=== PATIENT | male | born 1945 | race Caucasian/White ===

== ENCOUNTER → 2016-08-12 | Outpatient (CLI) | payer MEDICARE, BC | END | disposition home or self-care (01) | LOC: GMAL 14:30 | PROVIDERS: ATTEND Family Medicine | DX: D51.3 Other dietary vitamin B12 deficiency anemia (principal); E55.9 Vitamin D deficiency, unspecified ==

== ENCOUNTER → 2016-10-30 | Outpatient (CLI) | payer MEDICARE, BC ==
--- NOTE | 2016-10-30 19:16 | RAD ---
EXAM DESCRIPTION: Chest,2 Views CLINICAL HISTORY: 71 years Male FEVER, UNSPECIFIED COMPARISON: None. FINDINGS: Cardiac size and mediastinal contour are within normal limits. Elevation the left hemidiaphragm. Degenerative changes in the spine. Small amount of patchy density in the lung bases which may reflect atelectasis. Small degree of infiltrate is not excluded. IMPRESSION: Bilateral basilar atelectasis. Areas of developing infiltrate not entirely excluded Electronically signed by: Carito Parra 10/30/2016 7:15 PM CDT
== END | disposition home or self-care (01) ==
LOC: RAD 18:31
PROVIDERS: ATTEND Nurse Practitioner Family
DX: R50.9 Fever, unspecified (principal)

== ENCOUNTER → 2017-04-01 | Outpatient (CLI) | payer MEDICARE, BC | END | disposition home or self-care (01) | LOC: GMAL 11:56 | PROVIDERS: ATTEND Family Medicine | DX: Z12.5 Encounter for screening for malignant neoplasm of prostate (principal); E55.9 Vitamin D deficiency, unspecified | CPT/HCPCS: 82306; G0103 ==

== ENCOUNTER 2017-04-07 05:48 | Day surgery (SDC) | payer MEDICARE, BC ==
[2017-04-07] MEDS ORDERED: PROPARACAINE 0.5% OPHTH SOL 15 ML BTTL ONE (10:10)
[2017-04-07] MEDS ORDERED: TROP 1%/CYCLOPEN 1%/PHENYL 2% DROPS ONE (10:11)
[2017-04-07] MEDS ORDERED: MIDAZOLAM INJ 2 MG/2 ML VIAL ONE (12:31)
[2017-04-07] MEDS ORDERED: LIDOCAINE 1% PF 2 ML AMP INJ ONE (13:24)
[2017-04-07] MEDS ORDERED: DEXAMETHASONE 0.1% OPHTH SOL 1 DROP LEFT_EYE ONE ×2 (13:26→13:40)
[2017-04-07] MEDS ORDERED: BRIMONIDINE 0.2% OPHTH DROPS LEFT_EYE ONE ×2 (13:27→13:40)
[2017-04-07] MEDS ORDERED: TOBRAMYCIN SULF 0.3 % OPHT SOL 1 DROP LEFT_EYE ONE ×2 (13:27→13:40)
[2017-04-07 13:57] VITALS: BP 170/80; TEMP 97.3; O2SAT 95
== END 2017-04-07 14:15 | disposition home or self-care (01) ==
LOC: AMB 05:48
PROVIDERS: ATTEND Ophthalmology
DX: H25.12 Age-related nuclear cataract, left eye (principal); H52.202 Unspecified astigmatism, left eye; I10 Essential (primary) hypertension; K21.9 Gastro-esophageal reflux disease without esophagitis; Z88.8 Allergy status to other drugs, medicaments and biological substances; Z79.899 Other long term (current) drug therapy
CPT/HCPCS: 00142; 66984; J2250; V2786

== ENCOUNTER 2017-04-21 05:43 | Day surgery (SDC) | payer MEDICARE, BC ==
[2017-04-21] MEDS ORDERED: PROPARACAINE 0.5% OPHTH SOL 15 ML BTTL ONE (05:51)
[2017-04-21] MEDS ORDERED: TROP 1%/CYCLOPEN 1%/PHENYL 2% DROPS ONE (05:52)
[2017-04-21] MEDS: TOBRAMYCIN SULF 0.3 % OPHT SOL 1 DROP RIGHT_EYE ONE ×2 (11:54→12:50)
[2017-04-21] MEDS ORDERED: MIDAZOLAM INJ 2 MG/2 ML VIAL ONE ×2 (12:04→12:34)
[2017-04-21] MEDS ORDERED: PROPARACAINE 0.5% OPHTH SOL 15 ML BTTL RIGHT_EYE ONE (12:31)
[2017-04-21] MEDS ORDERED: LIDOCAINE 1% PF 2 ML AMP INJ ONE (12:44)
[2017-04-21] MEDS ORDERED: DEXAMETHASONE 0.1% OPHTH SOL 1 DROP RIGHT_EYE ONE ×2 (12:44→12:50)
[2017-04-21] MEDS ORDERED: TOBRAMYCIN SULF 0.3 % OPHT SOL 1 DROP RIGHT_EYE ONE (12:45)
[2017-04-21] MEDS ORDERED: BRIMONIDINE 0.2% OPHTH DROPS RIGHT_EYE ONE ×2 (12:45→12:50)
[2017-04-21 13:27] VITALS: TEMP 97
[2017-04-21 13:29] VITALS: BP 161/91; O2SAT 97
== END 2017-04-21 13:30 | disposition home or self-care (01) ==
LOC: AMB 05:43
PROVIDERS: ATTEND Ophthalmology
DX: H25.11 Age-related nuclear cataract, right eye (principal); H52.201 Unspecified astigmatism, right eye; H52.4 Presbyopia; J45.909 Unspecified asthma, uncomplicated; Z79.51 Long term (current) use of inhaled steroids; Z79.899 Other long term (current) drug therapy; Z88.6 Allergy status to analgesic agent
CPT/HCPCS: 00142; 66984; J2250

== ENCOUNTER → 2017-06-16 | Outpatient (CLI) | payer MEDICARE, BC | LOC: GMAL 14:23 | PROVIDERS: ATTEND Family Medicine | DX: D53.9 Nutritional anemia, unspecified (principal) ==

== ENCOUNTER → 2018-03-11 | Outpatient (CLI) | payer MEDICARE ==
--- NOTE | 2018-03-12 08:20 | US ---
EXAM DESCRIPTION: Bladder: ULTRASOUND. CLINICAL HISTORY: 72 years Male N39.41 COMPARISON: None Available. TECHNIQUE: Transcutaneous scanning: Hernández-scale and Doppler modes. FINDINGS: Urinary bladder well demonstrated. Prevoid measurements 10.2 x 7.3 x 6.0 cm for total volume of 234.71 mL. Postvoid dimensions 3.5 x 1.8 x 1.8 cm for volume of 5.7 mL. Micturition volume approximately 229 mL. Ureteral jets were not visualized. No wall thickening. No prominent soft tissue mass in the bladder cavity. IMPRESSION: Patient able to void approximately 95% of initial volume with residual volume 5.7 mL. Electronically signed by: Bruno Garza MD 03/12/2018 8:19 AM INTERNAL MEDICINE NURSE
== END ==
LOC: US 11:41
PROVIDERS: ATTEND Family Medicine
DX: N39.41 Urge incontinence (principal)

== ENCOUNTER → 2018-04-05 | Outpatient (CLI) | payer MEDICARE | LOC: SL 20:27 | PROVIDERS: ATTEND Family Medicine | DX: G47.33 Obstructive sleep apnea (adult) (pediatric) (principal) ==

== ENCOUNTER → 2018-05-26 | Outpatient (CLI) | payer MEDICARE ==
--- NOTE | 2018-05-26 12:07 | MRI ---
EXAM DESCRIPTION: Cervical Spine: MRI. CLINICAL HISTORY: 72 years Male SPINAL CORD CONTUSION COMPARISON: Cervical TECHNIQUE: Multiplanar, high-field MRI, multiple sequences, non-contrast Cervical spine. FINDINGS: C3-C4. Posterior midline bulge of the desiccated disc impressing on the cord. Posterior hypertrophied flavum ligaments impressing on the posterior cord. AP canal diameter 4 mm. Minimal hyperintense signal in the central cord extending also to the level of the mid C5 vertebral body. Bilateral facet arthrosis with extra-articular edema more left than right. Bilateral neural foraminal stenosis more right than left. This has progressed since the prior study. ACDF bilateral C4-C5. Minimal hypertrophy of the posterior interbody fusion abutting the cord. Hyperintense T2 and STIR signal in the central cord canal. Right neural foraminal stenosis and moderate left neural foraminal narrowing. No abnormal fluid collection around the hardware are within the canal. C5-C6: Disc desiccation with no significant bulging posteriorly. Hypertrophy of the left uncinate joint with left facet arthrosis and hypertrophy resulting in left neural foraminal stenosis. Mild right neural foraminal narrowing. Minimal facet joint arthrosis bilaterally. C6-C7: Moderate disc space loss and disc desiccation. No posterior bulging. Canal patent. Uncinate spur and right borderline neural foraminal stenosis. Mild left neural foraminal narrowing. Facets are negative. C7-T1 disc desiccation and moderate disc space loss. No posterior bulging or canal stenosis. Moderate type I endplate reactive changes. Posterior broad-based disc bulge impressing on the ventral cord with minimal flavum ligament hypertrophy and mild central canal stenosis. Bilateral uncinate spurs with mild to moderate left foraminal narrowing and right neural foraminal stenosis. T1-T2: Disc desiccation and moderate disc space loss. Anterior disc bulge. Posterior disc bulge and ligament hypertrophy with borderline canal stenosis. 3 mm grade 1 anterolisthesis. Bilateral neural foraminal stenosis. Normal signal in the C2-C3 disc with no bulging. Disc spaces preserved. Canal and neural foramina are patent. Facet joints unremarkable. Spinal alignment kyphosis C4-C7. Atlantoaxial joint minimal arthrosis. Base of the cerebellar tonsils is above the foramen magnum. Paravertebral soft tissues negative. Vertebral bodies are not compressed at any level. Normal marrow signal in the remaining vertebral bodies and the posterior elements. IMPRESSION: 1. Spinal cord edema from compression at C3-4 with spinal stenosis as well. Also cord edema at C4-5 where ACDF was performed. Right neural foraminal stenosis at C4-5. Correlate for right C5 radiculopathy. Bilateral neural foraminal stenosis at C3-4, correlate for bilateral C4 radiculopathy. 2. Multifactorial left neural foraminal stenosis at C5-6, correlate for left C6 radiculopathy. 3. Borderline right neural foraminal stenosis at C6-7. Correlate for right C7 radiculopathy. 4. Multifactorial mild central canal stenosis C7-T1. Right neural foraminal stenosis, correlate for right C8 radiculopathy. 5. Borderline central canal stenosis T1-T2 with grade 1 anterolisthesis and bilateral neural foraminal stenosis. Correlate for bilateral T1 radiculopathy. Electronically signed by: Bruno Garza MD 05/26/2018 12:03 PM [facility]
== END ==
LOC: MRI 09:00
PROVIDERS: ATTEND Family Medicine
DX: S14.126A Central cord syndrome at C6 level of cervical spinal cord, initial encounter (principal); M48.02 Spinal stenosis, cervical region

== ENCOUNTER → 2018-07-22 | Outpatient (CLI) | payer MEDICARE | LOC: LAB.O 09:14 | PROVIDERS: ATTEND Family Medicine | DX: Z20.820 Contact with and (suspected) exposure to varicella (principal) ==

== ENCOUNTER 2018-09-18 05:40 | Day surgery (SDC) | payer MEDICARE ==
--- NOTE | 2018-09-17 11:27 | SSS ---
CHIEF COMPLAINT: Need for screening colonoscopy. HISTORY OF PRESENT ILLNESS: Mr. Sultana is a 73-year-old male who presented to my office for routine followup. It was noted he was due for a colonoscopy. He had a normal colonoscopy in 2001 and then he also had a colonoscopy in July of [address] Gamboa at [facility] who saw some small erosions proximal to his anastomosis. He wanted to repeat this colonoscopy in 5 years. It has been 7 years. He denies any symptoms referable to his bowel, specifically no significant abdominal pain or rectal bleeding. PAST MEDICAL HISTORY: 1. Seasonal allergies. 2. Benign prostatic hypertrophy. 3. History of renal stones. 4. Vertigo. 5. Restless leg syndrome. 6. Posttraumatic stress disorder from [place]. 7. Recent neck and low back surgery. PAST SURGICAL HISTORY: 1. Left inguinal herniorrhaphy. 2. Colon resection in 1989 secondary to "agent orange damage." We think this was a right hemicolectomy. 3. Right rotator cuff repair in 1998. 4. Laminectomy at L4 and 5 on 09/04/[address] Mike Grant in [place]. 5. Exploratory laparotomy times 2. 6. Anterior cervical discectomy and fusion at C4-C5 with Dr. Grant on 05/19/12. 7. Revision of C3-C4 anterior cervical discectomy with fusion with Synthes bone cage and [place] plate for complex cervical stenosis and associated myelopathy by Dr. Mike Grant on 06/29/18. 8. Colonoscopies in 2001 and 2011. MEDICATIONS: 1. Stiolto Respimat. 2. Maxzide p.r.n. 3. Mirapex at h.s. 4. Albuterol nebulizer p.r.n. 5. Several vitamins. ALLERGIES: CODEINE. FAMILY HISTORY: Father from pneumonia. He has one brother, Johnny, with type 2 diabetes and one sister, Karis. He has one daughter. He has one son. 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 He is . He has 3 children. He was in the [employer] and was in [place] for one year from September of 1967 to September of 1968. He does not drink alcohol and never has. He smoked half a pack per day for about 5 years. REVIEW OF SYSTEMS: Negative except as in the history of present illness. PHYSICAL EXAMINATION: VITAL SIGNS: Blood pressure 122/70. Weight 210 pounds. Height 5'10". Pulse 70. GENERAL: He is awake, alert and in no acute distress. HEENT: Unremarkable. LUNGS: Faint wheeze diffusely. CARDIOVASCULAR: Regular rate and rhythm. EXTREMITIES: Without edema. NEUROLOGIC: Nonfocal. ASSESSMENT: 1. Need for screening colonoscopy. PLAN: Colonoscopy on 09/18/18. #[id number] [facility]
[2018-09-18] MEDS ORDERED: PROPOFOL 200 MG/20 ML VIAL IV ONE (06:00)
[2018-09-18] MEDS ORDERED: LACTATED RINGERS 1,000 ML ONE (06:48)
[2018-09-18] MEDS ORDERED: MIDAZOLAM INJ 2 MG/2 ML VIAL ONE (07:31)
[2018-09-18] MEDS ORDERED: fentaNYL CITRATE INJ 50 MCG/ML AMP ONE (07:31)
--- NOTE | 2018-09-18 09:46 | OP ---
DATE OF PROCEDURE: 09/18/18 PREOPERATIVE DIAGNOSIS: 1. Screening colonoscopy. 2. History of presumed right hemicolectomy. POSTOPERATIVE DIAGNOSIS: 1. Rare sigmoid diverticula. 2. Status post right hemicolectomy in 1989. 3. Otherwise normal colon to the anastomosis. PROCEDURE: 1. Colonoscopy. SURGEON: Chavez Bales MD. ESTIMATED BLOOD LOSS: Less than 1 mL. COMPLICATIONS: No immediate complications. ANESTHESIA: Fentanyl 1 mg, Versed 2 mg, propofol 200 mg administered intravenously via Jemal Rdz CRNA. TECHNIQUE: After informed consent was obtained from the patient, the patient was taken to the Endoscopy Suite and placed in the left lateral decubitus position. Vital signs were monitored throughout the procedure. Supplemental oxygen was administered throughout the procedure. After adequate sedation was obtained, digital rectal examination was performed, which showed a mildly to moderately enlarged prostate without suspicious nodules. The colonoscope was then advanced into the patient's rectum and up through the sigmoid, descending, transverse colon into the right colon where the anastomosis site was found. Small bowel was entered for approximately 3 to 5 cm. No abnormalities were noted there. The colonoscope was then slowly withdrawn. Overall, the bowel prep was fairly good though distally there were some adherent areas of liquid stool. Great effort was made to wash off and suction out as much of this as possible. I feel quite confident that no polyps greater than 1 cm were missed. The colonoscope was then slowly withdrawn. No other abnormalities were noted throughout the entire colon other than one small sigmoid/left sided diverticula. Retroflexion was performed in the rectum which was unremarkable. Air was then suctioned out of the patient's rectum. The colonoscope was removed from the patient. The patient tolerated the procedure well. PLAN: 1. The patient will followup in my office in 6 months as there were no abnormalities noted on the colonoscopy. 2. Repeat colonoscopy in 8 to 10 years for screening purposes. #[id number] [facility]
[2018-09-18 09:52] VITALS: BP 125/75; TEMP 97; O2SAT 97
== END 2018-09-18 09:40 | disposition home or self-care (01) ==
LOC: AMB 05:40
PROVIDERS: ATTEND Family Medicine
DX: Z12.11 Encounter for screening for malignant neoplasm of colon (principal); K57.30 Diverticulosis of large intestine without perforation or abscess without bleeding; N40.0 Benign prostatic hyperplasia without lower urinary tract symptoms; G25.81 Restless legs syndrome; Z90.49 Acquired absence of other specified parts of digestive tract; Z98.1 Arthrodesis status; Z87.891 Personal history of nicotine dependence; Z88.5 Allergy status to narcotic agent; Z79.899 Other long term (current) drug therapy
CPT/HCPCS: 00812; G0121; J2250; J3010; J3490; J7120

== ENCOUNTER 2019-06-14 00:10 | Emergency (ER) | payer MEDICARE ==
[2019-06-14] MEDS ORDERED: SODIUM CHLORIDE 0.9% (FLUSH) 10 ML SYG IV PRN (00:20)
[2019-06-14 00:24] VITALS: TEMP 97.2
[2019-06-14] MEDS ORDERED: diazePAM INJ 10 MG/2 ML SYG IV ONE (00:25)
[2019-06-14] MEDS ORDERED: KETOROLAC TROMETHAMINE INJ 30 MG/ML VIAL IV ONE (00:25)
[2019-06-14] MEDS ORDERED: MORPHINE SULFATE INJ 10 MG/ML VIAL IV ONE (00:25)
--- NOTE | 2019-06-14 01:29 | ED.PDOC ---
History of Present Illness - General Chief Complaint: Upper Extremity Injury Stated Complaint: right shoulder pain, through to chest Time Seen by Provider: 06/14/19 00:20 - History of Present Illness Initial Comments: c/o having R uuper back pain since 2 weeks went to PCP got injection and pain meds but it did not improve , no chest pain or sob Allergies/Adverse Reactions: Allergies Codeine Adverse Reaction (Verified 09/15/18 09:41) Other hallucinations Home Medications: Ambulatory Orders Albuterol Sulfate 1.25 mg IN PRN PRN 04/08/17 Glucosamine Sulfate [Glucosamine] 1,000 mg PO DAILY 04/08/17 Krill Oil [Megared [place]-3 Krill Oil 500 mg] 1 cap PO DAILY 04/08/17 Lisinopril 20 mg PO BID 04/08/17 Pramipexole Dihydrochloride [Pramipexole Dihydrochlori] 0.5 mg PO DAILY PRN 04/08/17 Ascorbic Acid [Vitamin C] 500 mg PO DAILY 09/15/18 Cholecalciferol [Vitamin D3] 1,000 unit PO DAILY 09/15/18 Cyanocobalamin [Vitamin B-12] 2,500 mcg SL DAILY 09/15/18 Ferrous Gluconate [Iron] 27 mg PO DAILY 09/15/18 Tiotropium [place]-Olodaterol [Stiolto Respimat 2.5-2.5 Mcg/Act] 2 aer IN DAILY 09/15/18 Triamterene & Hydrochlorothiaz [Triamterene/Hydrochloroth 37.5-25 mg] 1 tab PO DAILY 09/15/18 Vitamin E [E-400] 400 unit PO DAILY 09/15/18 Review of Systems - Review of Systems Constitutional: States: no symptoms reported EENTM: States: no symptoms reported Respiratory: States: no symptoms reported Cardiology: States: no symptoms reported Gastrointestinal/Abdominal: States: no symptoms reported Genitourinary: States: no symptoms reported Musculoskeletal: States: see HPI Skin: States: no symptoms reported Neurological: States: no symptoms reported Endocrine: States: no symptoms reported Hematologic/Lymphatic: States: no symptoms reported Past Medical History (General) - Patient Medical History Hx Congestive Heart Failure: No Hx Hypertension: Yes Hx Diabetes: No Hx MRSA: No - Vaccination History Hx Influenza Vaccination: No - Triage Comment ED Triage Comment: treated by PCP for right shoulder pain, not getting better. Radiates through to chest Family Medical History - Family History Father Family History: Unknown Physical Exam - Physical Exam General Appearance: Alert, Comfortable Eyes, Ears, Nose, Throat Exam: normal ENT inspection Neck: full range of motion, supple, normal inspection Cardiovascular/Respiratory: no M/R/G, normal peripheral pulses, no JVD Back Exam: normal inspection Shoulder Exam: pain, soft tissue tenderness - over the R scapular region Elbow/Forearm Exam: non-tender, no evidence of injury Wrist Exam: normal inspection, non-tender, no evidence of injury Hand Exam: normal inspection, non-tender, no evidence of injury Mental Status: alert, oriented x 3 Skin Exam: normal color, warm/dry Progress - Results/Orders Results/Orders: 06/14/19 00:20 IV Care:Saline Lock per Protoc QSHIFT Telemetry .ONCE Sodium Chloride 0.9% (Flush) [Saline Flush Syringe] 10 ml IV PRN PRN EKG Stat Pulse Ox Stat Pulse Oximetry Assessment DAILY Chest,1 View [RAD] Stat 06/14/19 00:32 B-TYPE NATRIURETIC PEPTIDE/BNP Stat CARDIAC PANEL,ER Stat Laboratory Results WBC 9.2 K/mm3 (4.8-10.8) 06/14/19 00:32 RBC 4.59 M/mm3 (4.70-6.10) L 06/14/19 00:32 Hgb 15.4 gm/dL (14.0-18.0) 06/14/19 00:32 Hct 44.2 % (42.0-52.0) 06/14/19 00:32 MCV 96.3 fl (80.0-94.0) H 06/14/19 00:32 MCH 33.5 pg (27.0-31.0) H 06/14/19 00:32 MCHC 34.8 g/dL (33.0-37.0) 06/14/19 00:32 RDW 12.7 % (11.5-14.5) 06/14/19 00:32 Plt Count 174 K/mm3 (130-400) 06/14/19 00:32 MPV 8.9 fl (7.40-10.4) 06/14/19 00:32 Absolute Neuts (auto) 5.80 K/uL (1.8-6.8) 06/14/19 00:32 Absolute Lymphs (auto) 2.00 K/uL (1.0-3.4) 06/14/19 00:32 Absolute Monos (auto) 1.00 K/uL (0.2-0.8) H 06/14/19 00:32 Absolute Eos (auto) 0.40 K/uL (0.0-0.4) 06/14/19 00:32 Absolute Basos (auto) 0.10 K/uL (0.0-0.1) 06/14/19 00:32 Neutrophils % 62.7 % (42.0-78.0) 06/14/19 00:32 Lymphocytes % 22.1 % (20.0-50.0) 06/14/19 00:32 Monocytes % 10.4 % (2.0-9.0) H 06/14/19 00:32 Eosinophils % 4.1 % (1.0-5.0) 06/14/19 00:32 Basophils % 0.7 % (0.0-2.0) 06/14/19 00:32 PT 9.6 SECONDS (9.0-10.9) 06/14/19 00:32 INR < 1.00 (0.9-1.15) 06/14/19 00:32 PTT (SP) 25.2 SECONDS (21.8-31.6) 06/14/19 00:32 D-Dimer, Quantitative < 100 ng/ml (131-400) L 06/14/19 00:32 Sodium 134 mmol/L (135-145) L 06/14/19 00:32 Potassium 4.2 mmol/L (3.6-5.0) 06/14/19 00:32 Chloride 100 mmol/L (101-111) L 06/14/19 00:32 Carbon Dioxide 25 mmol/L (21-31) 06/14/19 00:32 Anion Gap 13.2 (12-18) 06/14/19 00:32 BUN 29 mg/dL (7-18) H 06/14/19 00:32 Creatinine 1.23 mg/dL (0.6-1.3) 06/14/19 00:32 BUN/Creatinine Ratio 23.6 (10-20) H 06/14/19 00:32 Random Glucose 126 mg/dL (70-105) H 06/14/19 00:32 Serum Osmolality 275.6 mOsm/L (275-295) 06/14/19 00:32 Calcium 9.3 mg/dL (8.4-10.2) 06/14/19 00:32 Magnesium 2.3 mg/dL (1.8-2.5) 06/14/19 00:32 Creatine Kinase 126 IU/L (38-174) 06/14/19 00:32 B-Natriuretic Peptide < 5.0 pg/ml (0-100) 06/14/19 00:32 - EKG/XRAY/CT EKG: Sinus Departure - Departure Clinical Impression: Back pain, Pain in scapula Time of Disposition: 01:30 Disposition: Discharge to Home or Self Care Condition: Good Departure Forms: ED Discharge - Pt. Copy, Patient Portal Self Enrollment Instructions: DI for Arm Pain Diet: resume usual diet Activity: increase activity as tolerated, walking as tolerated Referrals: Chavez Bales III, MD [Primary Care Provider] - 1-2 Weeks Home Medications: Ambulatory Orders Albuterol Sulfate 1.25 mg IN PRN PRN 04/08/17 Glucosamine Sulfate [Glucosamine] 1,000 mg PO DAILY 04/08/17 Krill Oil [Megared [place]-3 Krill Oil 500 mg] 1 cap PO DAILY 04/08/17 Lisinopril 20 mg PO BID 04/08/17 Pramipexole Dihydrochloride [Pramipexole Dihydrochlori] 0.5 mg PO DAILY PRN 04/08/17 Ascorbic Acid [Vitamin C] 500 mg PO DAILY 09/15/18 Cholecalciferol [Vitamin D3] 1,000 unit PO DAILY 09/15/18 Cyanocobalamin [Vitamin B-12] 2,500 mcg SL DAILY 09/15/18 Ferrous Gluconate [Iron] 27 mg PO DAILY 09/15/18 Tiotropium [place]-Olodaterol [Stiolto Respimat 2.5-2.5 Mcg/Act] 2 aer IN DAILY 09/15/18 Triamterene & Hydrochlorothiaz [Triamterene/Hydrochloroth 37.5-25 mg] 1 tab PO DAILY 09/15/18 Vitamin E [E-400] 400 unit PO DAILY 09/15/18 Additional Instructions: Return to ER if symptoms gets better
--- NOTE | 2019-06-14 01:30 | RAD ---
EXAM DESCRIPTION: X-ray single view chest. CLINICAL HISTORY: 73 years Male, pain COMPARISON: 10/30/2016 TECHNIQUE: Single portable x-ray view of the chest performed on 06/14/2019 at 1:19 AM FINDINGS: The lungs are slightly hypoinflated and are grossly clear. The radiograph is lordotic in position. There may be trace blunting of the right lateral costophrenic sulcus. No airspace process is identified. There is no evidence of a pneumothorax. The cardiac silhouette is normal in size and configuration. The mediastinal contours are normal. No acute osseous abnormality is identified. There are remote postsurgical changes of the cervical spine. There are chronic changes of the left shoulder. No focal soft tissue abnormalities are seen. Lines and tubes: None. IMPRESSION: 1. No definite acute intrathoracic disease. 2. Slight hypoinflation of the lungs. The radiograph is lordotic in position. Electronically signed by: Tess Quinn DO 06/14/2019 1:28 AM CDT
[2019-06-14 02:07] VITALS: BP 129/76; O2SAT 98
== END 2019-06-14 02:15 | disposition home or self-care (01) ==
LOC: ER 00:10
DX: M54.6 Pain in thoracic spine (principal); R07.9 Chest pain, unspecified; M25.511 Pain in right shoulder; I10 Essential (primary) hypertension; Z88.5 Allergy status to narcotic agent; Z79.899 Other long term (current) drug therapy
CPT/HCPCS: 71045; 80048; 82550; 82553; 83880; 84484; 85025; 85379; 85610; 85730; 93005; J1885; J2270; J3360

== ENCOUNTER → 2019-08-06 | Outpatient (CLI) | payer MEDICARE ==
--- NOTE | 2019-08-06 09:31 | MRI ---
EXAM DESCRIPTION: Knee,Right CLINICAL HISTORY: 73 years Male, PAIN IN RIGHT KNEE. M25.561 COMPARISON: None. TECHNIQUE: Noncontrast multiplanar multisequence magnetic resonance imaging of the right knee. FINDINGS: Radial tear posterior horn of the medial meniscus is present. Similar radial-type free edge truncation/tearing of the lateral meniscus has a horizontal component that extends into the body segment. Central weightbearing lateral compartment articular surface cartilage loss extends to the bone plate measuring up to 0.8 cm in the mediolateral dimension and 2 cm in the anterior posterior dimension consistent with grade 4 chondrosis. Grade 3 chondrosis along the central weightbearing surface of the medial tibial condyle surface measures 0.8 cm mediolateral dimension and 1.4 cm anterior posterior dimension. Full-thickness cartilage loss with subchondral cyst formation lower lateral facet of the patella measures nearly 1.7 cm mediolateral dimension extending towards the apex and up to 0.9 cm cephalocaudal dimension. Corresponding area of cartilage fibrillation grade 3-4 is seen within the trochlear groove. Large knee joint effusion is present. No significant synovitis. Proximal tibiofibular joint effusion is present with multiple loose bodies measuring up to 0.6 cm. No denervation myositis of the anterior compartment musculature. No other popliteal cyst formation. Quadriceps and patellar tendons are intact. Medial and lateral patellar retinacular attachments are maintained. The cruciate ligaments are intact. Medial collateral and fibular collateral ligaments are maintained. IMPRESSION: Medial and lateral meniscal tears. See above description. Patellofemoral and lateral compartment chondrosis up to grade 4. Medial compartment chondrosis up to grade 3. Large knee joint effusion. Proximal tibiofibular joint effusion with small heterotopic bodies. Intact cruciate and collateral ligaments. Electronically signed by: Bienvenido Segura MD 08/06/2019 9:30 AM CDT
== END ==
LOC: MRI 07:00
PROVIDERS: ATTEND Family Medicine
DX: S83.241A Other tear of medial meniscus, current injury, right knee, initial encounter (principal); S83.281A Other tear of lateral meniscus, current injury, right knee, initial encounter; M94.261 Chondromalacia, right knee; M25.461 Effusion, right knee